=== PATIENT | female | born 1985 | race Two or more races ===

== ENCOUNTER 2021-12-06 10:35 | Inpatient (IN) | payer OTHER ==
[~2021-12-06] VITALS: Ht 160 cm; Wt 93.9 kg
[2021-12-07] MEDS ORDERED: ADULT LOW DOSE81 M1 (08:04)
[2021-12-07] MEDS ORDERED: PRENATAL + DHA1 EAC1 (08:04)
== END 2021-12-09 12:50 | disposition home or self-care (01) | DRG 785 ==
LOC: SURG-SUITE 10:35 → LDR 10:35 → SURG-SUITE 11:31
PROVIDERS: ADMIT Specialist; ATTEND Specialist
PROC: 0UB70ZZ Excision of Bilateral Fallopian Tubes, Open Approach (ICD-10-PCS; 2021-12-06)
PROC: 4A1HXCZ Monitoring of Products of Conception, Cardiac Rate, External Approach (ICD-10-PCS; 2021-12-06)
PROC: 10D00Z1 Extraction of Products of Conception, Low, Open Approach (ICD-10-PCS; principal; 2021-12-06 12:00)
DX: O34.211 Maternal care for low transverse scar from previous cesarean delivery (principal); Z30.2 Encounter for sterilization; Z3A.38 38 weeks gestation of pregnancy; Z37.0 Single live birth; Z20.822 Contact with and (suspected) exposure to COVID-19